=== PATIENT | male | born 1990 | race Caucasian/White ===

== ENCOUNTER 2021-03-22 23:26 | Emergency (ER) | payer BC ==
[~2021-03-22] VITALS: Ht 185.4 cm; Wt 113.0 kg
--- NOTE | 2021-03-22 23:53 | PHYS DOC ---
General Adult EDM: Chief Complaint: ALCOHOL INTOXICATION HPI: HPI: 30-year-old male past medical history of seizure disorder (last seizure 1 month ago), presents to the ED brought by EMS from nearby [email or web address] concert after patient fell at the concert. Patient complains of burning his hands on elmira cheese sauce which is currently on his clothing. Cannot recall if he hit his head or lost consciousness. Does admit to alcohol use. Reports his tetanus is up-to-date. (JASON WANG DO) Review of Systems: Review of Systems: Constitutional: Denies fever or chills. [] Eyes: Denies change in visual acuity. [] HENT: Denies nasal congestion or sore throat. [] Respiratory: Denies cough or shortness of breath. [] Cardiovascular: Denies chest pain or edema. [] GI: Denies abdominal pain, nausea, vomiting, or diarrhea. [] : Denies saddle anesthesia or incontinence Musculoskeletal: Denies midline back pain or joint pain. [] Integument: Denies rash or diaphoresis Neurologic: Denies headache, neck pain, focal weakness or sensory changes. [] Endocrine: Denies polyuria or polydipsia. [] Lymphatic: Denies swollen glands. [] Psychiatric: Denies depression or anxiety. [] (JASON WANG DO) Heart Score: C/O Chest Pain: No Risk Factors: Risk Factors: DM, Current or recent (<one month) smoker, HTN, HLP, family history of CAD, obesity. Risk Scores: Score 0 - 3: 2.5% MACE over next 6 weeks - Discharge Home Score 4 - 6: 20.3% MACE over next 6 weeks - Admit for Clinical Observation Score 7 - 10: 72.7% MACE over next 6 weeks - Early Invasive Strategies (JASON WANG DO) Allergies: Allergies: Allergies Coded Allergies Type Severity Reaction Last Updated Verified Unable to Assess 03/22/21 No (JASON WANG DO) Physical Exam: PE: Constitutional: Slurred speech, no acute distress, requires assistance in transferring from EMS stretcher to ED bed HENT: Normocephalic, atraumatic, Eyes: PERRLA, no septal hematoma, no raccoon eyes, EOMI, conjunctiva normal, no discharge. Neck: Normal range of motion, supple, no midline neck pain Cardiovascular: S1/2 present, regular rhythm Lungs & Thorax: Speaking in full sentences, bilateral equal chest rise, no tachypnea or increased work of breathing Abdomen: soft, no tenderness, Skin: Warm, dry, no erythema, no rash. [] Back: No midline spinal step-offs or tenderness, no CVA tenderness. [] Extremities: No tenderness, no cyanosis, no lower extremity edema, moves all 4 extremities, very superficial facial abrasions to right third and fourth fingers with no active bleeding or laceration Neurologic: Alert and oriented X 3, normal motor function, normal sensory function, no focal deficits noted, moves all 4 extremities Psychologic: Judgment slow/sluggish, calm mood (JASON WANG DO) EKG: EKG: [] (JASON WANG DO) Radiology/Procedures: Radiology/Procedures: []IMAGING REPORT Signed PATIENT: ERNESTINE BEATTY ACCOUNT: [id number] : 1990 LOCATION: ER AGE: 30 SEX: M EXAM STATUS: REG ER ORD. PHYSICIAN: JASON WNAG DO REASON: fall? PROCEDURE: CT HEAD AND CERVICAL SPINE WO EXAM: 1. CT HEAD WITHOUT CONTRAST. 2. CT CERVICAL SPINE WITHOUT CONTRAST. HISTORY: Fall, trauma. TECHNIQUE: Computed tomography of the head and cervical spine was performed without intravenous contrast. One or more of the following individualized dose reduction techniques were utilized for this examination: 1. Automated exposure control. 2. Adjustment of the mA and/or kV according to patient size. 3. Use of iterative reconstruction technique. COMPARISON: None. FINDINGS: There is no intracranial hemorrhage. Persaud-white differentiation is preserved. The ventricles are normal in size and position. The visualized paranasal sinuses appear clear. The orbits are unremarkable. The temporal bones are unremarkable. The calvarium reveals no suspicious lesions. Alignment is maintained. The craniocervical junction is unremarkable. No fractures are identified. Intervertebral disc heights are maintained. There is no prevertebral soft tissue swelling. There is no central canal stenosis or neural foraminal stenosis. IMPRESSION: 1. No acute intracranial findings. 2. No cervical fracture or malalignment. Electronically signed by: Alejo Tamayo MD (03/23/2021 2:23 AM) [facility] DICTATED and SIGNED BY: SANTINO TAMAYO MD DATE: 03/23/21 [id number] (JASON WANG DO) Course & Med Decision Making: Course & Med Decision Making Pertinent Labs and Imaging studies reviewed. (See chart for details) Concern for alcohol intoxication-alcohol level still high after 6 hours and banana bag. Patient requested PAT team consult for alcohol detox. Patient reports history of seizures when he goes into alcohol withdrawal. Last seizure was 2 months ago. Patient is medically cleared with no signs of active tremors, tongue fasciculations or alcohol withdrawal. Patient has steady gait and medical decision-making capacity-has voided and restroom. Covid test is pending. Likely awaiting placement for inpatient detoxification. Patient signed out to oncoming physician Dr. Andujar for further medical evaluation disposition. (JASON WANG DO) Course & Med Decision Making Patient is stable at this time. He does not appear to be in withdrawal. He is to go to [facility]. Patient's test results and vitals while in the ED were fully reviewed and discussed with the patient. Patient is stable and at this time does not need admission to the hospital. We have discussed strict return precautions and the importance of following up with their Primary Care Physician. Patient stated understanding and was given an opportunity to ask any questions. Patient is in agreement with plan. (DENNIS ANDUJAR MD) Dragon Disclaimer: Dragon Disclaimer: This electronic medical record was generated, in whole or in part, using a voice recognition dictation system. (JASON WANG DO) Departure Departure Impression: Primary Impression: Alcohol intoxication Additional Impression: Abrasion of finger of right hand Disposition: HOME / SELF CARE / HOMELESS Condition: STABLE Patient Instructions: Alcohol Problems Scripts Chlordiazepoxide Hcl (CHLORDIAZEPOXIDE HCL) 25 Mg Capsule 25 MG PO Q8H PRN for WITHDRAWAL IRRITABILITY, #10 CAP Prov: DENNIS ANDUJAR MD 03/23/21 JASON WANG DO Mar 22, 2021 23:53 DENNIS ANDUJAR MD Mar 23, 2021 12:50
[2021-03-22 23:59] LABS: BASO % 1 % (0-3); EOS % 0 % (0-3); HEMATOCRIT 43.4 % (39.0-53.0); HEMOGLOBIN 15.1 g/dL (13.0-17.5); LYMPH # 1.7 x10^3/uL (1.0-4.8); LYMPH % 25 % (24-48); MEAN CORPUSCULAR HEMOGLOBIN 33 pg (25-35); MEAN CORPUSCULAR HGB CONC 35 g/dL (31-37); MEAN CORPUSCULAR VOLUME 94 fL (79-100); MONO # 0.6 x10^3/uL (0.0-1.1); MONO % 9 % (0-9); NEUT # 4.3 x10^3/uL (1.8-7.7); NEUT % 65 % (31-73); PLATELET COUNT 232 x10^3/uL (140-400); RED BLOOD COUNT 4.61 x10^6/uL (4.30-5.70); RED CELL DISTRIBUTION WIDTH 13.2 % (11.5-14.5); WHITE BLOOD COUNT 6.6 x10^3/uL (4.0-11.0)
[2021-03-23 00:09] LABS: CALCIUM 8.4 mg/dL (8.5-10.1); CREATININE 0.9 mg/dL (0.7-1.3); GFR 99.8; POTASSIUM 4.4 mmol/L (3.5-5.1)
[2021-03-23] MEDS ORDERED: MULTIVIT INFUSN,ADULT 4,VIT K 10 ML, THIAMINE INJ 100 MG, FOLIC ACID INJ 1 MG in IV NOR... IV ONE (00:15)
--- NOTE | 2021-03-23 02:25 | RAD ---
EXAM: 1. CT HEAD WITHOUT CONTRAST. 2. CT CERVICAL SPINE WITHOUT CONTRAST. HISTORY: Fall, trauma. TECHNIQUE: Computed tomography of the head and cervical spine was performed without intravenous contr ast. One or more of the following individualized dose reduction techniques were utilized for this exa mination: 1. Automated exposure control. 2. Adjustment of the mA and/or kV according to patient size. 3. Use of iterative reconstruction technique. COMPARISON: None. FINDINGS: There is no intracranial hemorrhage. Persaud-white differentiation is preserved. The ventricl es are normal in size and position. The visualized paranasal sinuses appear clear. The orbits are unremarkable. The temporal bones are un remarkable. The calvarium reveals no suspicious lesions. Alignment is maintained. The craniocervical junction is unremarkable. No fractures are identified. In tervertebral disc heights are maintained. There is no prevertebral soft tissue swelling. There is no central canal stenosis or neural foraminal stenosis. IMPRESSION: 1. No acute intracranial findings. 2. No cervical fracture or malalignment. Electronically signed by: Alejo Tamayo MD (03/23/2021 2:23 AM) [facility]
[2021-03-23] MEDS ORDERED: CHLO25CA9 PO (12:49)
[2021-03-23] MEDS ORDERED: LEVE500T56 PO (12:57)
[2021-03-23 13:10] VITALS: BP 130/81
== END 2021-03-23 13:27 | disposition home or self-care (01) ==
LOC: ER 23:26
DX: S00.81XA Abrasion of other part of head, initial encounter (principal); S60.414A Abrasion of right ring finger, initial encounter; S60.416A Abrasion of right little finger, initial encounter; F10.129 Alcohol abuse with intoxication, unspecified; G40.909 Epilepsy, unspecified, not intractable, without status epilepticus; Z20.822 Contact with and (suspected) exposure to COVID-19; Y90.9 Presence of alcohol in blood, level not specified; W18.39XA Other fall on same level, initial encounter; Y93.89 Activity, other specified; Y92.89 Other specified places as the place of occurrence of the external cause; Y99.8 Other external cause status
CPT/HCPCS: 36415; 70450; 72125; 80048; 82550; 85025; 87426; 96365; 96366; 99285; G0480; J3411; J3490; J7030; U0003; U0005